=== PATIENT | male | born 2005 ===

== ENCOUNTER 2024-03-01 09:18 | Emergency (ER) | payer BC, SELFPAY ==
[2024-03-01 09:20] VITALS: BP 116/81
--- NOTE | 2024-03-01 09:37 | ED.GENMED ---
History of Present Illness
General
Chief Complaint: Rabies
Source: patient
Exam Limitations: none
Time Seen by Provider: 03/01/24 09:25
Nursing documentation reviewed up to this point in time: agreed with
History of Present Illness
History of Present Illness:
18-year-old male was bitten on the tip of his right index finger in [place] on February 25. He received his initial rabies vaccines there. He is here for his follow-up vaccines. The wound is healing well, no adverse reactions from the initial
immunizations
Past History
Past History
ED Past Medical History: None
ED Past Surgical History: None
Social History
Tobacco: Non-smoker
Alcohol: None
Personal: Single
Living: with family
Review of Systems
Review of Systems
Allergies reviewed?: Yes
All Other Systems: ROS reviewed and negative except as documented in HPI and ROS
Skin: Reports other (Well-healed small puncture distal right index finger)
Phy Exam
Physical Exam
Physical Exam:
PHYSICAL EXAMINATION:
General: no apparent distress, not acutely ill
Neuro: alert and oriented.
Psychiatric: well kept. interactive and cooperative
Musculoskeletal: Moves with ease
Skin: Warm, normal.
Course
Orders/Labs/Results
Orders:
Orders
03/01/24 10:15
Rabies Vaccine (Pce[facility])/Pf [Rabavert Rabies Vacc W-Diluent] 2.5 unit IM .ONCE ONE
Vital Signs
Initial and Last Documented VS:
Initial Vital Signs
Temp Pulse Resp BP Pulse Ox
97.8 F 93 16 116/81 98
03/01/24 09:20 03/01/24 09:20 03/01/24 09:20 03/01/24 09:20 03/01/24 09:20
Last Documented Vital Signs
Temp Pulse Resp BP Pulse Ox
97.8 F 93 16 116/81 98
03/01/24 09:20 03/01/24 09:20 03/01/24 09:20 03/01/24 09:20 03/01/24 09:20
MDM/Problems Addressed
MDM/Problems Addressed:
18-year-old male was bitten on the tip of his right index finger in [place] on February 25. He received his initial rabies vaccines there. He is here for his follow-up vaccines. The wound is healing well, no adverse reactions from the initial
immunizations
*Critical Care Note
Total Time (30-74mins, 75-104mins- exclusive of procedures): Not Applicable
ED Attending Note
-
Portions of this chart may have been created with voice recognition software.� Occasional wrong word or��sound alike� substitutions may have occurred due to the inherent limitations of voice recognition software.
Discharge Plan
Departure
Patient Disposition: Home (Routine Discharge)
Date of Disposition: 03/01/24
Time of Disposition: 10:00
Patient with high blood pressure during this ER visit?: No
Condition: Good
Discharge Problem:
Need for immunization against rabies
Instructions: Animal Bites (DC)
Prescriptions:
New
RabAvert (PF) 2.5 unit suspension for reconstitution
1 ml IM ONCE Qty: 2 0RF
Rx Instructions:
Rabavert 1 ml IM on 03/08 and 03/15
Referrals:
Outpatient, Infusion Center [Other] - Keep scheduled appt
Stand Alone Forms: Rabies Vaccine Post Exp Dosing
Activity Restrictions/Additional Instructions:
As we discussed, call the outpatient infusion [phone] and make next appointment
Take your prescription with you.
Interventions
Interventions:
*Risk Screen - Suicide Last Done: 03/01/24 09:20
*General Assessment Last Done: 03/01/24 09:20
*Neglect/Abuse Screening Last Done: 03/01/24 09:20
ED- Fall Risk Assessment Last Done: 03/01/24 11:01
*ED COVID-19 Vaccine History Last Done: 03/01/24 10:13
*Nursing Disposition Last Done: 03/01/24 11:01
Discharge Date and Time
Discharge Date/Time: 03/01/24 10:45
Print Language: ROMANSH
[2024-03-01 10:13] VITALS: BMI 28.4
[2024-03-01] MEDS: RABAVERT RABIES VACC W-DILUENT 2.5 UNIT IM (10:20)
== END 2024-03-01 10:45 | disposition home or self-care (01) ==
LOC: EMR 09:18
PROVIDERS: EMERGENCY PHYSICIAN Student in an Organized Health Care Education/Training Program; FAMILY PHYSICIAN Nurse Practitioner
DX: Z20.3 Contact with and (suspected) exposure to rabies (principal); Z23 Encounter for immunization
CPT/HCPCS: 99282; 90471; 90675

== ENCOUNTER 2024-03-11 14:31 | Outpatient (RCR) | payer BC, SELFPAY ==
[2024-03-04 15:34] VITALS: BP 127/67
[2024-03-04] MEDS: RABAVERT RABIES VACC W-DILUENT 2.5 UNIT IM (15:42)
[2024-03-11 14:39] VITALS: BP 137/75
[2024-03-11] MEDS: RABAVERT RABIES VACC W-DILUENT 2.5 UNIT IM (14:46)
== END 2024-03-13 08:49 | disposition home or self-care (01) ==
LOC: OID 14:31
PROVIDERS: ATTENDING PHYSICIAN Physician Assistant
DX: Z20.3 Contact with and (suspected) exposure to rabies (principal); Z23 Encounter for immunization
CPT/HCPCS: 90471; 90675